=== PATIENT | female | born 1995 | race Caucasian/White ===

== ENCOUNTER 2023-12-06 14:19 | Emergency (ER) | payer BC, OTHER ==
[~2023-12-06] VITALS: Ht 160 cm; Wt 86.6 kg
[2023-12-06 14:21] VITALS: BP 130/81; PULSE 83; TEMP 98; O2SAT 100
[2023-12-06] MEDS ORDERED: ketorolac trometh. 30mg/ml inj. IM ONE (15:35)
[2023-12-06] MEDS: HYDROcodone/acetaminophen 5mg/325mg tablet PO ONE (15:43)
[2023-12-06 15:44] VITALS: RESP 16
[2023-12-06] MEDS: ketorolac tromethamine 15mg/ml inj. IM ONE (15:44)
[2023-12-06] MEDS ORDERED: HYDR-3965 PO (15:46)
== END 2023-12-06 16:11 | disposition home or self-care (01) ==
LOC: ER 14:19
DX: K08.89 Other specified disorders of teeth and supporting structures (principal); Z79.899 Other long term (current) drug therapy
CPT/HCPCS: 96372; 99283; J1885